=== PATIENT | male | born 1970 | race Caucasian/White ===

== ENCOUNTER 2016-07-07 12:22 | Emergency (ER) ==
[2016-07-07 12:28] VITALS: BP 149/96; TEMP 98.1; BMI 23.5
[2016-07-07] MEDS ORDERED: MORPHINE 4 MG/ML SYRINGE IM STA (12:42)
[2016-07-07] MEDS ORDERED: ZOFRAN 4 MG/2 ML IM STA (12:42)
[2016-07-07 12:44] LABS: BILIRUBIN,URINE Negative (NEGATIVE); KETONES,URINE Negative (NEGATIVE); LEUKOCYTE ESTERASE ,URINE Negative (NEGATIVE); NITRITE,URINE Negative (NEGATIVE); PROTEIN,URINE 1+ (NEGATIVE); URINE, BLOOD Trace-lysed (NEGATIVE)
[2016-07-07] MEDS ORDERED: TORADOL IM STA (12:44)
[2016-07-07 12:50] LABS: ADD URINE MICROSCOPIC YES
[2016-07-07 12:54] LABS: BASOPHILS # (AUTO) 0.1 K/uL (0-0.2); EOSINOPHILS # (AUTO) 0.6 K/ul (0.0-0.7); EOSINOPHILS % (AUTO) 5.9 % (0.0-7.0); HEMATOCRIT 39.3 % (42.0-52.0); HEMOGLOBIN 13.5 g/dl (14.0-18.0); IMMATURE GRANULOCYTE % (AUTO) 0.2 % (0.0-5.0); LYMPHOCYTES # (AUTO) 2.1 K/uL (0.60-3.4); LYMPHOCYTES % (AUTO) 22.3 (10.0-50.0); MEAN CORPUSCULAR HEMOGLOBIN 31.3 pg (27.0-31.0); MEAN CORPUSCULAR HGB CONC 34.4 (31.8-35.4); MONOCYTES # (AUTO) 0.9 K/uL (0.4-2.0); MONOCYTES % (AUTO) 9.1 (0-10); NEUTROPHILS # (AUTO) 5.8 K/ul (2.0-6.9); NEUTROPHILS % (AUTO) 61.5; PLATELET COUNT 239 10^3/uL (140-440); RED BLOOD COUNT 4.32 10^6/ul (4.70-6.10); WHITE BLOOD COUNT 9.42 K/ul (4.2-10.2)
[2016-07-07 13:15] LABS: ALBUMIN 3.4 g/dL (3.4-5.0); ALBUMIN/GLOBULIN RATIO 1.1; ANION GAP 10.5; BILIRUBIN,TOTAL 0.28 mg/dL (0.00-1.20); BUN/CREATININE RATIO 10.66; CALCIUM 8.7 mg/dL (8.2-10.2); CREATININE 0.75 mg/dL (0.60-1.10); POTASSIUM 3.5 mmol/L (3.5-5.1); TOTAL PROTEIN 6.5 g/dL (6.4-8.2)
--- NOTE | 2016-07-07 13:39 | CT ---
EXAM: CT Abdomen without contrast. CT Pelvis without contrast. HISTORY: Bilateral flank pain. COMPARISON: 03/11/2016. TECHNIQUE: Multiple axial images of the abdomen and pelvis were obtained without intravenous contra st. Images were reformatted in the coronal plane. FINDINGS: Please note that evaluation of the abdominal and pelvic structures is limited due to lack of intravenous contrast. Lung bases are clear. Degenerative changes are present in the spine. The liver, gallbladder, pancreas, spleen, adrenal glands are unremarkable. There is a nonobstructin g 0.6 meters left renal calculus. No hydronephrosis or perinephric inflammation identified. No ure teral or bladder calculi are seen. Duodenal diverticulum present. Diverticula present in the colon. There has been previous appendect ranjana. There is no evidence for bowel obstruction or acute inflammation. Atherosclerotic calcificati ons are present. No free fluid or free air identified. Urinary bladder is unremarkable. IMPRESSION: Left nephrolithiasis without obstructive uropathy.
--- NOTE | 2016-07-07 13:55 | ED.PDOC ---
General ED Provider: Dr. JAYLA SPARKS Chief Complaint: Back Pain Stated Complaint: BACK PAIN Time Seen by Physician: 12:33 (NOVEMBER PRESENT) Information Source: Patient Exam Limitations: No limitations Nursing and Triage Documentation Reviewed and Agree: Yes Musculoskeletal Complaint Exam - Back Pain Complaint/Exam Mechanism of Injury: Reports: No known trauma Onset/Duration: 1 DAY Symptoms Are: Still present Timing: Intermittent Episodes Lasting: Hours Initial Severity: Moderate Current Severity: Moderate Character: Reports: Throbbing Aggravating: Reports: None Alleviating: Reports: None Associated Signs and Symptoms: Reports: Flank pain (LEFT). Denies: Swelling, Redness, Bruising, Fever, Weakness, Numbness, Tingling, Abdominal pain, Bladder incontinence, Bowel incontinence, Weight loss, Pain with weight bearing TAD Risk Factors: Reports: None AAA Risk Factors: Reports: None Cauda Equina Risk Factors: Reports: None Epidural Abcess Risk Factors: Reports: None Related Surgical History: Reports: None Focal Tenderness: No Paraspinal Muscle Tenderness: No Paraspinal Muscle Spasm: No Scoliosis: No Lordosis: No Kyphosis: No SLR Test: Right Negative, Left Negative Hip Motion Testing Pain: Right Negative, Left Negative Focal Weakness: Present: None Focal Sensory Loss: Present: None Gait: Present: Normal Differential Diagnoses: Renal Colic, Strain, Sprain Review of Systems - Review Of Systems Constitutional: Reports: No symptoms Eyes: Reports: No symptoms Ears, Nose, Mouth, Throat: Reports: No symptoms Respiratory: Reports: No symptoms Cardiac: Reports: No symptoms GI: Reports: No symptoms : Reports: No symptoms Musculoskeletal: Reports: Back pain Skin: Reports: No symptoms Neurological: Reports: No symptoms Endocrine: Reports: No symptoms Hematologic/Lymphatic: Reports: No symptoms All Other Systems: Reviewed and Negative Past Medical History - Past Medical History Previously Healthy: Yes Endocrine: Reports: Other (gout) Cardiovascular: Reports: Hypertension Respiratory: Reports: None Hematological: Reports: None Gastrointestinal: Reports: None Genitourinary: Reports: Kidney stones Neuro/Psych: Reports: None Musculoskeletal: Reports: Back Pain Cancer: Reports: None Other Pertinent Past Medical History: gout; chronic back pain - Surgical History General Surgical History: Reports: Appendectomy (exploratory lap), Orthopedic ( 3 knee surg) - Family History Family History: Reports: Unknown - Social History Smoking Status: Current every day smoker, Heavy tobacco smoker Hx Substance Use: Yes Alcohol Screening: Occasionally Physical Exam - Physical Exam Appearance: Well-appearing, No pain distress, Well-nourished Eyes: KATHARINE, EOMI, Conjunctiva clear ENT: Ears normal, Nose normal, Oropharynx normal Respiratory: Airway patent, Breath sounds clear, Breath sounds equal, Respirations nonlabored Cardiovascular: RRR, Pulses normal, No rub, No murmur GI/: Soft, Nontender, No masses, Bowel sounds normal, No Organomegaly Musculoskeletal: Normal strength, ROM intact, No edema, No calf tenderness Skin: Warm, Dry, Normal color Neurological: Sensation intact, Motor intact, Reflexes intact, Cranial nerves intact, Alert, Oriented Psychiatric: Affect appropriate, Mood appropriate Interpretation - Radiology Interpretation Radiology Interpretation By: Radiologist Radiology Results: Positive (RENAL STONE) Critical Care Note - Critical Care Note Total Time (mins): 0 Course - Course Hematology/Chemistry: 07/07/16 12:41 07/07/16 12:41 Orders, Labs, Meds: Lab Review 07/07/16 07/07/16 12:35 12:41 WBC 9.42 RBC 4.32 L Hgb 13.5 L Hct 39.3 L MCV 91.0 MCH 31.3 H MCHC 34.4 RDW Coeff of Chandni 12.5 Plt Count 239 Immature Gran % (Auto) 0.2 Neut % (Auto) 61.5 Lymph % (Auto) 22.3 Brewster % (Auto) 9.1 Eos % (Auto) 5.9 Baso % (Auto) 1.0 Immature Gran # (Auto) 0.0 Neut # 5.8 Lymph # 2.1 Brewster # 0.9 Eos # 0.6 Baso # 0.1 Sodium 141 Potassium 3.5 Chloride 107 Carbon Dioxide 27 Anion Gap 10.5 BUN 8 Creatinine 0.75 Estimated GFR (MDRD) 112.00 BUN/Creatinine Ratio 10.66 Glucose 113 H Calcium 8.7 Total Bilirubin 0.28 AST 24 ALT 36 Alkaline Phosphatase 106 Total Protein 6.5 Albumin 3.4 Globulin 3.1 Albumin/Globulin Ratio 1.10 Amylase 38 Lipase 26 Urine Color Yellow Urine Clarity Clear Urine pH 7.0 Ur Specific Rewey 1.020 Urine Protein 1+ Urine Glucose (UA) Negative Urine Ketones Negative Urine Blood Trace-lysed Urine Nitrite Negative Urine Bilirubin Negative Urine Urobilinogen 1.0 Ur Leukocyte Esterase Negative Urine Microscopic RBC 0-2 Urine Microscopic WBC 0-2 Ur Squamous Epith Cells 0-2 Orders Category Date Time Status AMYLASE Stat LAB 07/07/16 12:41 Received CBC W/ AUTO DIFF Stat LAB 07/07/16 12:41 Completed COMPREHENSIVE METABOLIC PANEL Stat LAB 07/07/16 12:41 Received LIPASE Stat LAB 07/07/16 12:41 Received URINALYSIS C & S IF INDICATED Stat LAB 07/07/16 12:35 Completed Ketorolac Tromethamine [Toradol] MEDS 07/07/16 12:44 Discontinued 30 mg IM ONCE STA Morphine Sulfate [Morphine 4 mg/ml Syringe] MEDS 07/07/16 12:42 Discontinued 4 mg IM ONCE STA Ondansetron HCl/Pf [Zofran 4 mg/2 ml] MEDS 07/07/16 12:42 Discontinued 4 mg IM ONCE STA CT ABD/PEL WO RENAL STONE PROT Stat RADS 07/07/16 13:03 Ordered Medications Discontinued Medications Generic Name Dose Route Start Last Admin Trade Name Freq PRN Reason Stop Dose Admin Ketorolac Tromethamine 30 mg 07/07/16 12:44 07/07/16 12:57 Toradol IM 07/07/16 12:45 30 mg ONCE STA Administration Morphine Sulfate 4 mg 07/07/16 12:42 07/07/16 12:54 Morphine 4 Mg/Ml Syringe IM 07/07/16 12:43 4 mg ONCE STA Administration Ondansetron HCl 4 mg 07/07/16 12:42 07/07/16 12:57 Zofran 4 Mg/2 Ml IM 07/07/16 12:43 4 mg ONCE STA Administration Vital Signs: Temp Pulse Resp BP Pulse Ox 07/07/16 12:24 98.1 F 99 H 24 149/96 H 98 Departure - Departure Time of Disposition: 13:55 Disposition: HOME SELF-CARE Discharge Problem: Backache, Renal calculi Instructions: Renal Colic (ED), Flank Pain (ED), Kidney Stones (ED) Condition: Good Pt referred to PMD for follow-up: No Additional Instructions: Please call your Family Physician as soon as possible to schedule a follow-up appointment. Prescriptions: Hydrocodone/Acetaminophen [Olymp[place] 5-325 Tablet] 1 each PO Q6HR PRN #4 tablet PRN Reason: PAIN Allergies/Adverse Reactions: Allergies codeine Adverse Reaction (Verified 07/07/16 12:24) Rash Home Medications: Ambulatory Orders Lisinopril 10 mg PO DAILY 10/30/15 Hydrocodone/Acetaminophen [[place] 5-325 Tablet] 1 each PO Q6HR PRN #4 tablet 09/18
== END 2016-07-07 14:16 | disposition home or self-care (01) ==
LOC: ED 12:22
DX: N20.0 Calculus of kidney (principal); I10 Essential (primary) hypertension; Z87.442 Personal history of urinary calculi; F17.210 Nicotine dependence, cigarettes, uncomplicated
CPT/HCPCS: 36415; 74176; 80053; 81001; 82150; 83690; 85025; 96372; 99283

== ENCOUNTER 2016-08-24 13:19 | Emergency (ER) ==
[2016-08-24 13:19] VITALS: BMI 23.5
[2016-08-24 13:22] VITALS: BP 145/90; TEMP 96.5
[2016-08-24] MEDS ORDERED: DECADRON 4 MG/ML SDV IM STA (13:50)
[2016-08-24] MEDS ORDERED: TORADOL IM STA (13:50)
--- NOTE | 2016-08-24 14:06 | ED.PDOC ---
General ED Provider: Dr. JAYLA SPARKS Chief Complaint: Foot Pain/Injury Stated Complaint: gout attack left foot Time Seen by Physician: 13:22 Mode of Arrival: Walk-In Information Source: Patient Exam Limitations: No limitations Nursing and Triage Documentation Reviewed and Agree: Yes (same pain same location no injury) Musculoskeletal Complaint Exam - Ankle/Foot Complaint/Exam Location of Injury: Reports: Left, Foot Mechanism of Injury: Reports: No known trauma Symptoms Are: Reports: Still present Onset of Pain: Reports: Immediate Initial Severity: Moderate Current Severity: Moderate Location: Reports: Discrete Character: Reports: Aching Alleviating: Reports: Rest, Position Aggravating: Reports: Movement Able to Bear Weight: Yes Associated Signs and Symptoms: Denies: Swelling, Redness, Bruising, Fever, Weakness, Numbness, Tingling Related History: Reports: Similar episode Gout Risk Factors: Reports: >40 years old, HTN Related Surgical History: Reports: None Lower Extremity Findings: Present: Limited range of motion. Absent: Swelling, Ecchymosis, Abnormal contour, Rotation, Ligamentous instability, Laceration, Erythema, Warmth, Blisters, Other joint pain, Foreign body, Tenderness Achilles Tendon Abnormality: No Tenderness: Present: Midfoot, Metatarsals, Digits. Absent: Medial malleolus, Lateral malleolus, Heel Differential Diagnosis: Gout Review of Systems - Review Of Systems Constitutional: Reports: No symptoms Eyes: Reports: No symptoms Ears, Nose, Mouth, Throat: Reports: No symptoms Respiratory: Reports: No symptoms Cardiac: Reports: No symptoms GI: Reports: No symptoms : Reports: No symptoms Musculoskeletal: Reports: Joint pain (foot) Skin: Reports: No symptoms Neurological: Reports: No symptoms Endocrine: Reports: No symptoms Hematologic/Lymphatic: Reports: No symptoms All Other Systems: Reviewed and Negative Past Medical History - Past Medical History Previously Healthy: Yes Endocrine: Reports: Other (gout) Cardiovascular: Reports: Hypertension Respiratory: Reports: None Hematological: Reports: None Gastrointestinal: Reports: None Genitourinary: Reports: Kidney stones Neuro/Psych: Reports: None Musculoskeletal: Reports: Back Pain Cancer: Reports: None Other Pertinent Past Medical History: gout; chronic back pain - Surgical History General Surgical History: Reports: Appendectomy (exploratory lap), Orthopedic ( 3 knee surg) - Family History Family History: Reports: Unknown - Social History Smoking Status: Current every day smoker, Heavy tobacco smoker Hx Substance Use: Yes Alcohol Screening: Occasionally Physical Exam - Physical Exam Appearance: Well-appearing, No pain distress, Well-nourished Eyes: KATHARINE, EOMI, Conjunctiva clear ENT: Ears normal, Nose normal, Oropharynx normal Respiratory: Airway patent, Breath sounds clear, Breath sounds equal, Respirations nonlabored Cardiovascular: RRR, Pulses normal, No rub, No murmur GI/: Soft, Nontender, No masses, Bowel sounds normal, No Organomegaly Musculoskeletal: Limited ROM Skin: Warm, Dry, Normal color Neurological: Sensation intact, Motor intact, Reflexes intact, Cranial nerves intact, Alert, Oriented Psychiatric: Affect appropriate, Mood appropriate Critical Care Note - Critical Care Note Total Time (mins): 0 Course - Course Orders, Labs, Meds: Orders Category Date Time Status Dexamethasone 4 mg/ml Inj [Decadron 4 mg/ml Sdv] MEDS 08/24/16 13:50 Discontinued 4 mg IM ONCE STA Ketorolac Tromethamine [Toradol] MEDS 08/24/16 13:50 Discontinued 60 mg IM ONCE STA Medications Discontinued Medications Generic Name Dose Route Start Last Admin Trade Name Freq PRN Reason Stop Dose Admin Dexamethasone Sodium Phosphate 4 mg 08/24/16 13:50 08/24/16 13:59 Decadron 4 Mg/Ml Sdv IM 08/24/16 13:51 4 mg ONCE STA Administration Ketorolac Tromethamine 60 mg 08/24/16 13:50 08/24/16 13:59 Toradol IM 08/24/16 13:51 60 mg ONCE STA Administration Vital Signs: Temp Pulse Resp BP Pulse Ox 08/24/16 13:19 96.5 F L 95 H 20 145/90 H 97 Departure - Departure Time of Disposition: 14:40 Disposition: HOME SELF-CARE Discharge Problem: Acute gout Qualifiers: Gout site: foot Gout etiology: unspecified cause Laterality: left Qualifier Code: (M10.9) Gout, unspecified Instructions: Gout (ED), Low Purine Diet (ED), Self-Care Measures with a Chronic Disease (ED) Condition: Good Pt referred to PMD for follow-up: No Additional Instructions: Please call your Family Physician as soon as possible to schedule a follow-up appointment. Allergies/Adverse Reactions: Allergies codeine Adverse Reaction (Verified 08/24/16 13:22) Rash Home Medications: Ambulatory Orders Nabumetone [Relafen] 1,000 mg PO BIDWM #4 tablet 08/24/16
== END 2016-08-24 14:27 | disposition home or self-care (01) ==
LOC: ED 13:19
DX: M10.9 Gout, unspecified (principal); I10 Essential (primary) hypertension; F17.210 Nicotine dependence, cigarettes, uncomplicated
CPT/HCPCS: 96372; 99282

== ENCOUNTER 2016-11-08 15:19 | Emergency (ER) ==
[2016-11-08 15:27] VITALS: BP 146/90; TEMP 98.9; BMI 24.1
[2016-11-08] MEDS ORDERED: TORADOL IM STA (15:35)
[2016-11-08] MEDS ORDERED: NORFLEX IM STA (15:35)
[2016-11-08] MEDS ORDERED: DECADRON 4 MG/ML SDV IM STA (15:36)
--- NOTE | 2016-11-08 15:39 | ED.PDOC ---
General ED Provider: Dr. JAYLA SPARKS Chief Complaint: Back Pain Stated Complaint: back pain Time Seen by Physician: 15:19 (no trauma/ MAY PRESENT AT ALL TIMES ) Information Source: Patient Exam Limitations: No limitations [facility] Nursing and Triage Documentation Reviewed and Agree: Yes Musculoskeletal Complaint Exam - Back Pain Complaint/Exam Mechanism of Injury: Reports: No known trauma Onset/Duration: chronic Symptoms Are: Still present Timing: Constant Episodes Lasting: Hours Initial Severity: Moderate Current Severity: Moderate Location: Reports: Discrete Character: Reports: Aching Aggravating: Reports: None Alleviating: Reports: None Associated Signs and Symptoms: Denies: Swelling, Redness, Bruising, Fever, Weakness, Numbness, Tingling, Abdominal pain, Flank pain, Bladder incontinence, Bowel incontinence, Weight loss, Pain with weight bearing Related History: Reports: Similar episode TAD Risk Factors: Reports: None AAA Risk Factors: Reports: None Cauda Equina Risk Factors: Reports: None Epidural Abcess Risk Factors: Reports: None Related Surgical History: Reports: None Focal Tenderness: No Paraspinal Muscle Tenderness: No Paraspinal Muscle Spasm: No Scoliosis: No Lordosis: No Kyphosis: No SLR Test: Right Negative, Left Negative Hip Motion Testing Pain: Right Negative, Left Negative Focal Weakness: Present: None Focal Sensory Loss: Present: None Gait: Present: Normal Differential Diagnoses: Strain, Sprain Review of Systems - Review Of Systems Constitutional: Reports: No symptoms Eyes: Reports: No symptoms Ears, Nose, Mouth, Throat: Reports: No symptoms Respiratory: Reports: No symptoms Cardiac: Reports: No symptoms GI: Reports: No symptoms : Reports: No symptoms Musculoskeletal: Reports: Back pain Skin: Reports: No symptoms Neurological: Reports: No symptoms Endocrine: Reports: No symptoms Hematologic/Lymphatic: Reports: No symptoms All Other Systems: Reviewed and Negative Past Medical History - Past Medical History Previously Healthy: Yes Endocrine: Reports: Other (gout) Cardiovascular: Reports: Hypertension Respiratory: Reports: None Hematological: Reports: None Gastrointestinal: Reports: None Genitourinary: Reports: Kidney stones Neuro/Psych: Reports: None Musculoskeletal: Reports: Back Pain Cancer: Reports: None Other Pertinent Past Medical History: gout; chronic back pain - Surgical History General Surgical History: Reports: Appendectomy (exploratory lap), Orthopedic ( 3 knee surg) - Family History Family History: Reports: Unknown - Social History Smoking Status: Current every day smoker, Heavy tobacco smoker Hx Substance Use: Yes (pot) Alcohol Screening: None Physical Exam - Physical Exam Appearance: Well-appearing, No pain distress, Well-nourished Eyes: KATHARINE, EOMI, Conjunctiva clear ENT: Ears normal, Nose normal, Oropharynx normal Respiratory: Airway patent, Breath sounds clear, Breath sounds equal, Respirations nonlabored Cardiovascular: RRR, Pulses normal, No rub, No murmur GI/: Soft, Nontender, No masses, Bowel sounds normal, No Organomegaly Musculoskeletal: Normal strength, ROM intact, No edema, No calf tenderness Skin: Warm, Dry, Normal color Neurological: Sensation intact, Motor intact, Reflexes intact, Cranial nerves intact, Alert, Oriented Psychiatric: Affect appropriate, Mood appropriate Critical Care Note - Critical Care Note Total Time (mins): 0 Course - Course Orders, Labs, Meds: Orders Category Date Time Status Dexamethasone 4 mg/ml Inj [Decadron 4 mg/ml Sdv] MEDS 11/08/16 15:36 Stat 2 mg IM ONCE STA Ketorolac Tromethamine [Toradol] MEDS 11/08/16 15:35 Stat 60 mg IM ONCE STA Orphenadrine Citrate [Norflex] MEDS 11/08/16 15:35 Stat 30 mg IM ONCE STA Medications Generic Name Dose Route Start Last Admin Trade Name Freq PRN Reason Stop Dose Admin Dexamethasone Sodium Phosphate 2 mg 11/08/16 15:36 Decadron 4 Mg/Ml Sdv IM 11/08/16 15:37 ONCE STA Discontinued Medications Generic Name Dose Route Start Last Admin Trade Name Freq PRN Reason Stop Dose Admin Ketorolac Tromethamine 60 mg 11/08/16 15:35 Toradol IM 11/08/16 15:36 ONCE STA Orphenadrine Citrate 30 mg 11/08/16 15:35 Norflex IM 11/08/16 15:36 ONCE STA Vital Signs: Temp Pulse Resp BP Pulse Ox 11/08/16 15:19 98.9 F 92 H 20 146/90 H 98 Departure - Departure Time of Disposition: 15:38 (pt charged out . LEFT AMA MAY PRESENT AT ALL TIMES ) Disposition: AMA Discharge Problem: Backache Back pain Qualifiers: Chronicity: unspecified Instructions: Back Pain (ED) Condition: Good Pt referred to PMD for follow-up: No Additional Instructions: Please call your Family Physician as soon as possible to schedule a follow-up appointment. Allergies/Adverse Reactions: Allergies codeine Adverse Reaction (Verified 11/08/16 15:26) Rash Home Medications: Ambulatory Orders 1 [No Reported Medications] 11/08/16
== END 2016-11-08 15:35 | disposition left against medical advice (07) ==
LOC: ED 15:19
DX: M54.9 Dorsalgia, unspecified (principal); F17.210 Nicotine dependence, cigarettes, uncomplicated
CPT/HCPCS: 99284

== ENCOUNTER 2017-01-21 14:38 | Outpatient (CLI) ==
[2017-01-21 14:54] VITALS: BMI 25.0
== END 2017-01-21 14:39 | disposition home or self-care (01) ==
LOC: AMBL 14:38
PROVIDERS: ATTEND Emergency Medicine
DX: M25.561 Pain in right knee (principal)

== ENCOUNTER 2017-01-21 14:46 | Emergency (ER) ==
[2017-01-21] MEDS ORDERED: ZOFRAN 4 MG/2 ML IM STA (14:52)
[2017-01-21] MEDS ORDERED: DILAUDID 1 MG/ML SYRINGE IM STA (14:52)
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
[2017-01-21 14:54] VITALS: BP 146/90; BMI 25.0
[2017-01-21 15:01] VITALS: TEMP 99.7
--- NOTE | 2017-01-21 15:52 | DI ---
EXAM: Right knee four views HISTORY: Acute right knee pain, history of patellar fracture COMPARISON: 12/27/2015 FINDINGS: There is redemonstration of a patellar fracture. Fracture line remains visible with nonu nion of the fracture. Small to moderate tricompartmental osteophytes. Mild narrowing patellofemoral compartment. Chondrocalcinosis medial and lateral compartment. Possible small joint effusion. IMPERSSION: 1. Redemonstration of a patellar fracture. Fracture line remains visible with nonunion of the frac ture. 2. Tricompartmental osteoarthritis. Chondrocalcinosis. 3. Possible small joint effusion.
== END 2017-01-21 16:44 | disposition home or self-care (01) ==
LOC: ED 14:46
DX: M25.561 Pain in right knee (principal); S82.001K Unspecified fracture of right patella, subsequent encounter for closed fracture with nonunion; M17.11 Unilateral primary osteoarthritis, right knee; W22.8XXD Striking against or struck by other objects, subsequent encounter; F17.210 Nicotine dependence, cigarettes, uncomplicated
CPT/HCPCS: 96372; 99283

== ENCOUNTER 2017-11-11 16:55 | Emergency (ER) ==
[2017-11-11 17:05] VITALS: BP 160/105; TEMP 98.9; BMI 26.2
[2017-11-11] MEDS ORDERED: TORADOL IM STA (18:11)
--- NOTE | 2017-11-11 18:11 | ED.PDOC ---
General ED Provider: Dr. JEY BURROUGHS Chief Complaint: Neck Pain Non-Injury Stated Complaint: Neck and Lt shoulder pain. 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 Onset 3 days ago with some improvement after resting at night but today after work pain exacerbated to the worst level pain 8/10. 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 Denies radiculating symptoms into lt UE. States pain at Lt occipital basilar region and in upper thoracic region on Lt into mid trapezius region and lt ant chest wall Time Seen by Physician: 18:00 Mode of Arrival: Walk-In Information Source: Patient Exam Limitations: No limitations Nursing and Triage Documentation Reviewed and Agree: Yes Reviewed sepsis parameters & appropriate labs ordered?: Yes System Inflammatory Response Syndrome: Not Applicable Sepsis Protocol: For patient's 13 years and over: Temp is 96.8 and below OR 101 and greater Pulse >90 BPM Resp >20/minute Acutely Altered Mental Status Are patient's symptoms suggestive of a new infection, such as: -Pneumonia -Skin, Soft Tissue -Endocarditis -UTI -Bone, Joint Infection -Implantable Device -Acute Abdominal Infection -Wound Infection -Meningitis -Blood Stream Catheter Infection -Unknown System Inflammatory Response Syndrome: Not Applicable Musculoskeletal Complaint Exam - Shoulder Pain Complaint/Exam Mechanism of Injury: Reports: No known trauma Symptoms Are: Still present Timing: Constant Initial Severity: Moderate Current Severity: Moderate Location: Reports: Discrete Character: Reports: Aching, Spasmodic, Stiffness Alleviating: Reports: Rest Aggravating: Reports: Movement, Lifting, Flexion, Extension Associated Signs and Symptoms: Reports: Swelling. Denies: Weakness Related History: Denies: Similar episode Non-Orthopedic Risk Factors: Reports: None DVT Risk Factors: Reports: None Septic Arthritis Risk Factors: Reports: None Related Surgical History: Reports: None Shoulder Findings: Present: Other joint pain (Tenderness at AC joint out to GH joint. ROM restricted until counterstrain completed then ROM Restored.). Absent : Swelling, Ecchymosis, Abnormal contour, Rotation, Ligamentous instability, Laceration, Erythema, Warmth Limited Range of Motion: Present: Abduction, External rotation Differential Diagnoses: Strain - Neck Pain Complaint/Exam Mechanism of Injury: Reports: No known trauma Symptoms Are: Still present Timing: Constant Episodes Lasting: Minutes Initial Severity: Severe Current Severity: Moderate Location: Reports: Discrete (Lt side ) Character: Reports: Aching, Spasmodic, Stiffness Aggravating: Reports: Movement Alleviating: Reports: Heat, Ice, Massage Associated Signs and Symptoms: Denies: Nuchal rigidity, Weakness, Headache, Paresthesia Related History: Reports: Similar episode Meningitis Risk Factors: Reports: None Cervical Spine Injury Risk Factors: Reports: None Related Surgical History: Reports: None Tenderness: Present: Paraspinal (lt) Radiates to: Absent: Right arm, Left arm Focal Weakness: Present: None Focal Sensory Loss: Reports: None Differential Diagnoses: Sprain, Strain, Other (Paraspinous muscular strain and spasm /Occipital cervical/ Lt and 1st Costovertebral somatic dysfunctions) Review of Systems - Review Of Systems Constitutional: Reports: No symptoms Eyes: Reports: No symptoms Ears, Nose, Mouth, Throat: Reports: No symptoms Respiratory: Reports: No symptoms Cardiac: Reports: No symptoms GI: Reports: No symptoms : Reports: No symptoms Musculoskeletal: Reports: Muscle pain, Muscle stiffness, Neck pain Skin: Reports: No symptoms Neurological: Reports: Anxiety Endocrine: Reports: No symptoms Hematologic/Lymphatic: Reports: No symptoms All Other Systems: Reviewed and Negative Past Medical History - Past Medical History Previously Healthy: Yes Endocrine: Reports: Other (gout) Cardiovascular: Reports: Hypertension Respiratory: Reports: None Hematological: Reports: None Gastrointestinal: Reports: None Genitourinary: Reports: Kidney stones Neuro/Psych: Reports: None Musculoskeletal: Reports: Back Pain Cancer: Reports: None Other Pertinent Past Medical History: gout; chronic back pain - Surgical History General Surgical History: Reports: Appendectomy (exploratory lap), Orthopedic ( 3 knee surg) - Family History Family History: Reports: Unknown - Social History Smoking Status: Current every day smoker, Heavy tobacco smoker Hx Substance Use: Yes (pot) Alcohol Screening: None Physical Exam - Physical Exam Appearance: Well-appearing, No pain distress, Well-nourished Eyes: KATHARINE, EOMI, Conjunctiva clear ENT: Ears normal, Nose normal, Oropharynx normal Respiratory: Airway patent, Breath sounds clear, Breath sounds equal, Respirations nonlabored Cardiovascular: RRR, Pulses normal, No rub, No murmur GI/: Soft, Nontender, No masses, Bowel sounds normal, No Organomegaly Musculoskeletal: Normal strength, ROM intact (Restricted ROM to Rt Cervical rotation ), No edema, No calf tenderness Skin: Warm, Dry, Normal color Neurological: Sensation intact, Motor intact, Reflexes intact, Cranial nerves intact, Alert, Oriented Psychiatric: Affect appropriate, Mood appropriate Critical Care Note - Critical Care Note Total Time (mins): 0 Course - Course Orders, Labs, Meds: Orders Category Date Time Status Ketorolac Tromethamine [Toradol] MEDS 11/11/17 18:39 Discontinued 10 mg PO ONCE STA Ketorolac Tromethamine [Toradol] MEDS 11/11/17 18:11 Discontinued 30 mg IM ONCE STA Orphenadrine Citrate [Norflex] MEDS 11/11/17 18:40 Discontinued 100 mg PO ONCE STA CT CERVICAL SPINE W/O CONTRAST Stat RADS 11/11/17 18:12 Completed Medications Discontinued Medications Generic Name Dose Route Start Last Admin Trade Name Freq PRN Reason Stop Dose Admin Ketorolac Tromethamine 30 mg 11/11/17 18:11 11/11/17 18:45 Toradol IM 11/11/17 18:12 Not Given ONCE STA Ketorolac Tromethamine 10 mg 11/11/17 18:39 11/11/17 18:45 Toradol PO 11/11/17 18:40 10 mg ONCE STA Administration Orphenadrine Citrate 100 mg 11/11/17 18:40 11/11/17 18:44 Norflex PO 11/11/17 18:41 100 mg ONCE STA Administration Vital Signs: Temp Pulse Resp BP Pulse Ox 11/11/17 16:56 98.9 F 108 H 20 160/105 H 98 Departure - Departure Time of Disposition: 19:00 Disposition: HOME SELF-CARE Discharge Problem: Cervical strain, acute, Cervicalgia of [id number]-[id number] region, Hypertension Instructions: Cervical Strain (ED), Chronic Hypertension (ED), Chronic Hypertension (DC) Condition: Fair Pt referred to PMD for follow-up: Yes (1 week) IPMP verified?: No Additional Instructions: Avoid strenuous activity and heavy lifting Take meds as directed Apply ice pack alternating with warm moist heat to neck and shoulder several times daily Prescriptions: Ketorolac Tromethamine [Toradol] 10 mg PO Q6H #20 tablet Orphenadrine Citrate [Norflex] 100 mg PO Q12H PRN #20 tablet.er PRN Reason: muscle spasm Allergies/Adverse Reactions: Allergies codeine Adverse Reaction (Verified 11/11/17 17:02) Rash Home Medications: Ambulatory Orders Ketorolac Tromethamine [Toradol] 10 mg PO Q6H #20 tablet 11/11/17 Orphenadrine Citrate [Norflex] 100 mg PO Q12H PRN #20 tablet.er 11/11/17
[2017-11-11] MEDS ORDERED: TORADOL PO STA (18:39)
[2017-11-11] MEDS ORDERED: NORFLEX PO STA (18:40)
--- NOTE | 2017-11-11 18:57 | CT ---
Exam: CT cervical spine without intravenous contrast. Comparison: 03/11/2016. Reason for exam: Neck pain. FINDINGS: No acute fracture or listhesis in the cervical spine. The vertebral body heights are well maintained. There is a normal appearing cervical lordotic curve. Mild degenerative disease is seen with osteophyte formation and facet hypertrophy. The dens is intact. The prevertebral soft tissues are within normal limits. Imaging findings appear similar to the CT performed on 03/11/2016. 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 Emphysematous disease is seen within the partially image d lung apices. Central canal narrowing secondary to degenerative disease most notably at C4-C5, C5-C 6, and C6-C7. Impression: No acute fracture or listhesis in the cervical spine with multilevel degenerative disease
== END 2017-11-11 19:34 | disposition home or self-care (01) ==
LOC: ED 16:55
DX: S16.1XXA Strain of muscle, fascia and tendon at neck level, initial encounter (principal); M54.2 Cervicalgia; M25.512 Pain in left shoulder; I10 Essential (primary) hypertension; X50.0XXA Overexertion from strenuous movement or load, initial encounter; F17.210 Nicotine dependence, cigarettes, uncomplicated
CPT/HCPCS: 99282

== ENCOUNTER 2017-11-15 17:39 | Emergency (ER) ==
[2017-11-15 17:45] VITALS: BP 123/89; TEMP 98; BMI 25.3
== END 2017-11-15 19:28 | disposition left against medical advice (07) ==
LOC: ED 17:39
DX: R25.2 Cramp and spasm (principal); R42 Dizziness and giddiness; F17.210 Nicotine dependence, cigarettes, uncomplicated
CPT/HCPCS: 99281

== ENCOUNTER 2018-03-02 15:24 | Outpatient (CLI) | END 2018-03-02 15:25 | disposition home or self-care (01) | LOC: RHC-LAB 15:24 | PROVIDERS: ATTEND Emergency Medicine | DX: F32.9 Major depressive disorder, single episode, unspecified (principal); N52.8 Other male erectile dysfunction; E66.9 Obesity, unspecified; F17.200 Nicotine dependence, unspecified, uncomplicated; Z12.5 Encounter for screening for malignant neoplasm of prostate | CPT/HCPCS: 36415; 80053; 80061; 84403; 84443; 85025 ==

== ENCOUNTER 2018-03-04 09:14 | Emergency (ER) | payer OTHER ==
[2018-03-04 09:23] VITALS: BP 151/93; TEMP 96; BMI 26.6
[2018-03-04] MEDS ORDERED: DILAUDID 0.5 MG/0.5 ML SYRINGE IVP STA ×2 (09:23→11:24)
[2018-03-04] MEDS ORDERED: ZOSYN 3.375 GM 3.375 GM in SODIUM CHLORIDE 50 ML IV STA (09:24)
[2018-03-04] MEDS ORDERED: TENIVAC IM ONE (09:24)
--- NOTE | 2018-03-04 09:47 | ED.PDOC ---
General ED Provider: Dr. JAYLA SPARKS Chief Complaint: Foot Pain/Injury Stated Complaint: left foot injury(nail gun) Time Seen by Physician: 09:15 (sen with entire nursing staff) Mode of Arrival: Wheelchair Information Source: Patient Exam Limitations: No limitations Primary Care Provider: CARMELO CARRERA Referred to ED by: Other (last meal ) Nursing and Triage Documentation Reviewed and Agree: Yes Does patient meet sepsis criteria?: No System Inflammatory Response Syndrome: Not Applicable Sepsis Protocol: For patient's 13 years and over: Temp is 96.8 and below OR 101 and greater Pulse >90 BPM Resp >20/minute Acutely Altered Mental Status Are patient's symptoms suggestive of a new infection, such as: -Pneumonia -Skin, Soft Tissue -Endocarditis -UTI -Bone, Joint Infection -Implantable Device -Acute Abdominal Infection -Wound Infection -Meningitis -Blood Stream Catheter Infection -Unknown Musculoskeletal Complaint Exam - Ankle/Foot Complaint/Exam Location of Injury: Reports: Left, Foot Mechanism of Injury: Reports: Trauma (by a nail gun ) Onset/Duration: 30 min ago Onset of Pain: Reports: Immediate Initial Severity: Moderate Current Severity: Moderate Location: Reports: Discrete (dorsal left foot) Character: Reports: Aching, Throbbing Alleviating: Reports: Rest Aggravating: Reports: Movement Able to Bear Weight: No (not attempted ) Associated Signs and Symptoms: Denies: Swelling, Redness, Bruising, Fever, Weakness, Numbness, Tingling (did not remove the pt's shoe ) Gout Risk Factors: Reports: >40 years old Related Surgical History: Reports: None Achilles Tendon Abnormality: No Tenderness: Present: Metatarsals Differential Diagnosis: Puncture Wound (nail), Other Review of Systems - Review Of Systems Constitutional: Reports: No symptoms Eyes: Reports: No symptoms Ears, Nose, Mouth, Throat: Reports: No symptoms Respiratory: Reports: No symptoms Cardiac: Reports: No symptoms GI: Reports: No symptoms : Reports: No symptoms Musculoskeletal: Reports: Other (LEFT FOOT PAIN) Skin: Reports: No symptoms Neurological: Reports: No symptoms Endocrine: Reports: No symptoms Hematologic/Lymphatic: Reports: No symptoms All Other Systems: Reviewed and Negative Past Medical History - Past Medical History Previously Healthy: Yes Endocrine: Reports: Other (gout) Cardiovascular: Reports: Hypertension Respiratory: Reports: None Hematological: Reports: None Gastrointestinal: Reports: None Genitourinary: Reports: Kidney stones Neuro/Psych: Reports: None Musculoskeletal: Reports: Back Pain Cancer: Reports: None Other Pertinent Past Medical History: gout; chronic back pain - Surgical History General Surgical History: Reports: Appendectomy (exploratory lap), Orthopedic ( 3 knee surg) - Family History Family History: Reports: Unknown - Social History Smoking Status: Current every day smoker, Heavy tobacco smoker Hx Substance Use: Yes (pot) Alcohol Screening: None - Immunizations Tetanus Shot up to Date: Yes (2-3 years.) Physical Exam - Physical Exam Appearance: Well-appearing, No pain distress, Well-nourished Eyes: KATHARINE, EOMI, Conjunctiva clear ENT: Ears normal, Nose normal, Oropharynx normal Respiratory: Airway patent, Breath sounds clear, Breath sounds equal, Respirations nonlabored Cardiovascular: RRR, Pulses normal, No rub, No murmur GI/: Soft, Nontender, No masses, Bowel sounds normal, No Organomegaly Musculoskeletal: Limited ROM (a nail is noted on the dorsal aspect of the left fot no ) Skin: Warm, Dry, Normal color Neurological: Sensation intact, Motor intact, Reflexes intact, Cranial nerves intact, Alert, Oriented Psychiatric: Affect appropriate, Mood appropriate Interpretation - Mercerizing Range Feeder Rate: Normal Rhythm: Sinus Ectopy: None - EKG Interpretation Rate: Normal Rhythm: Sinus [place]: Left (LEFT ANTERIOR HEMIBLOCK, PROLONGED QT INTERVAL) Physician Notification - Case Discussed Physician Notified: Brina BARBA /DAMASO BARBA Time of Notification: 10:10 (TRANSFER TO ED AT [facility]) Time of Notification: 10:12 (DOCTOR BRINA WOULD LIKE GENTAMYOCIN BE GIVEN CONSULTED [facility] ON THIS ISSUE ) Critical Care Note - Critical Care Note Total Time (mins): 0 Course - Course Hematology/Chemistry: 03/04/18 09:25 Orders, Labs, Meds: Lab Review 03/04/18 09:25 WBC 9.13 RBC 4.72 Hgb 14.8 Hct 42.0 MCV 89.0 MCH 31.4 H MCHC 35.2 RDW Coeff of Chandni 12.3 Plt Count 282 Immature Gran % (Auto) 0.3 Neut % (Auto) 48.7 Lymph % (Auto) 35.0 [place] % (Auto) 9.3 Eos % (Auto) 5.8 Baso % (Auto) 0.9 Immature Gran # (Auto) 0.0 Neut # (Auto) 4.4 Lymph # (Auto) 3.2 [place] # (Auto) 0.9 Eos # (Auto) 0.5 Baso # (Auto) 0.1 Orders Category Date Time Status EKG-(ED ONLY) Stat CARDIO 03/04/18 09:50 Ordered CBC W/ AUTO DIFF Stat LAB 03/04/18 09:50 Ordered COMPREHENSIVE METABOLIC PANEL Stat LAB 03/04/18 09:50 Ordered PARTIAL THROMBOPLASTIN TIME Stat LAB 03/04/18 09:50 Ordered PT WITH INR Stat LAB 03/04/18 09:50 Ordered Hydromorphone HCl [Dilaudid 0.5 mg/0.5 ml Syringe] MEDS 03/04/18 09:23 Stat 0.5 mg IVP ONCE STA Piperacillin Sodium/Tazobactam [Zosyn 3.375 gm] 3.375 MEDS 03/04/18 09:24 Ordered gm 0.9 % Sodium Chloride [Sodium Chloride] 50 ml IV ONCE Tetanus and Diphtheria Tox/Pf [Tenivac] MEDS 03/04/18 09:24 Once 0.5 ml IM .ONCE ONE CT FOOT LEFT WITHOUT CONTRAST Stat RADS 03/04/18 10:00 Ordered FOOT, LEFT 3 VIEWS Stat RADS 03/04/18 09:23 Ordered Medications Generic Name Dose Route Start Last Admin Trade Name Freq PRN Reason Stop Dose Admin Piperacillin Sod/Tazobactam 50 mls @ 50 mls/hr 03/04/18 09:24 03/04/18 09:59 Sod 3.375 gm/ Sodium Chloride IV 03/04/18 10:23 50 mls/hr ONCE STA Administration Discontinued Medications Generic Name Dose Route Start Last Admin Trade Name Freq PRN Reason Stop Dose Admin Hydromorphone HCl 0.5 mg 03/04/18 09:23 03/04/18 09:28 Dilaudid 0.5 Mg/0.5 Ml Syringe IVP 03/04/18 09:24 0.5 mg ONCE STA Administration Tetanus/Diphtheria Toxoids Adsorbed 0.5 ml 03/04/18 09:24 Tenivac IM 03/04/18 09:25 .ONCE ONE Vital Signs: Temp Pulse Resp BP Pulse Ox 03/04/18 09:15 96 F L 98 H 20 151/93 H 98 Departure - Departure Time of Disposition: 11:00 (ATE /DRANK ABOUT 1 HOUR AGO) Disposition: TSF SHORT-TRM HOSP Discharge Problem: Foreign body in foot, left Qualifiers: Encounter type: initial encounter Qualified Code(s): S90.852A - Superficial foreign body, left foot, initial encounter Instructions: Puncture Wound (ED), Puncture Wound (DC) Condition: Good Pt referred to PMD for follow-up: Yes IPMP verified?: No Additional Instructions: Please call your Family Physician as soon as possible to schedule a follow-up appointment. Allergies/Adverse Reactions: Allergies codeine Adverse Reaction (Verified 03/04/18 09:22) Rash Disposition Discussed With: Patient
--- NOTE | 2018-03-04 09:52 | DI ---
EXAM: Three views of the left foot. History: Left foot trauma. Findings / impression: Evaluation is difficult due to overlying clothing material. 3.8 cm metallic n ail is seen projecting over the first metatarsal. It is difficult to determine whether this is penet rating the bone or within the adjacent soft tissues. Consider correlation with CT. There is a metallic nail seen posteriorly but not within the soft tissues in the sole of the shoe.
[2018-03-04] MEDS ORDERED: GENTAMICIN SULFATE 80 MG in SODIUM CHLORIDE 50 ML IV STA (10:13)
--- NOTE | 2018-03-04 10:55 | CT ---
Exam: CT left foot without contrast History: Nail injury Technique: [address] of the left foot with multiplanar reformations FINDINGS: A nail traverses the first metatarsal anteromedial medial to posterolateral direction. A few comminuted fracture fragments. No additional bones are involved. The anterior cortex remains in tact. Impression: 1. Penetrating injury through the first metatarsal metadiaphysis. Mild fracture comminution. No add itional fracture sites.
== END 2018-03-04 11:30 | disposition short-term general hospital (02) ==
LOC: ED 09:14
DX: S91.342A Puncture wound with foreign body, left foot, initial encounter (principal); W29.4XXA Contact with nail gun, initial encounter; F17.210 Nicotine dependence, cigarettes, uncomplicated
CPT/HCPCS: 36415; 80053; 85025; 85610; 85730; 93005; 93010; 96365; 96366; 96375; 96376; 99285

== ENCOUNTER 2018-03-04 11:32 | Outpatient (CLI) ==
[2018-03-04 09:23] VITALS: BMI 26.6
== END 2018-03-04 11:54 | disposition short-term general hospital (02) ==
LOC: AMBL 11:32
PROVIDERS: ATTEND Internal Medicine
DX: S91.342A Puncture wound with foreign body, left foot, initial encounter (principal); W45.0XXA Nail entering through skin, initial encounter; W29.8XXA Contact with other powered hand tools and household machinery, initial encounter; S92.302A Fracture of unspecified metatarsal bone(s), left foot, initial encounter for closed fracture

== ENCOUNTER 2018-03-16 08:04 | Outpatient (CLI) | END 2018-03-16 08:05 | disposition home or self-care (01) | LOC: WOUND 08:04 | PROVIDERS: ATTEND Nurse Practitioner Family | DX: S91.342A Puncture wound with foreign body, left foot, initial encounter (principal); I10 Essential (primary) hypertension; J44.9 Chronic obstructive pulmonary disease, unspecified | CPT/HCPCS: 99202 ==

== ENCOUNTER 2018-08-01 13:15 | Emergency (ER) ==
[2018-08-01 13:19] VITALS: BP 149/85; TEMP 98; BMI 25.0
[2018-08-01] MEDS ORDERED: NORFLEX IM STA (14:17)
[2018-08-01] MEDS ORDERED: TORADOL IM STA (14:17)
--- NOTE | 2018-08-01 14:59 | CT ---
EXAM: CT abdomen pelvis without contrast HISTORY: Pain, left flank pain COMPARISON: 03/11/2016 TECHNIQUE: CT abdomen pelvis performed without intravenous contrast. Coronal and sagittal reformatt ed images obtained. FINDINGS: Mild dependent density lung bases. No free air. No acute abnormalities of the bones. De generative change in the spine. Heart normal in size. Evaluation organ parenchyma limited without c ontrast. Liver appears normal. Gallbladder appears normal. Pancreas appears normal. Spleen appear s normal. Adrenals appear normal. Aorta normal in caliber. Mild atherosclerosis. Prostate normal in size. Small bilateral fat containing inguinal hernias. Small fat-containing periumbilical hernia . Minimal8 fat-containing periumbilical hernia. No lymphadenopathy or ascites. Stomach unremarkabl e. Duodenal diverticula. No dilated loops small bowel. Patient status post appendectomy. Mild col onic diverticulosis. Punctate right nephrolithiasis. 6 mm nonobstructing calculus left inferior kid catherine. No hydronephrosis. No calculi visualized in normal course of the ureters. Bladder grossly unr emarkable. IMPRESSION: 1. Bilateral nephrolithiasis. No hydronephrosis. 2. Colonic diverticulosis. Duodenal diverticulum.
--- NOTE | 2018-08-01 15:04 | ED.PDOC ---
General ED Provider: Dr. JAYLA SPARKS Chief Complaint: Back Pain Stated Complaint: back pain left sided left flank Time Seen by Physician: 13:17 Mode of Arrival: Walk-In Information Source: Patient Exam Limitations: No limitations Primary Care Provider: DORIS ROSALES Nursing and Triage Documentation Reviewed and Agree: Yes Does patient meet sepsis criteria?: No If yes, has appropriate treatment been initiated?: No System Inflammatory Response Syndrome: Not Applicable Sepsis Protocol: For patient's 13 years and over: Temp is 96.8 and below OR 101 and greater Pulse >90 BPM Resp >20/minute Acutely Altered Mental Status Are patient's symptoms suggestive of a new infection, such as: -Pneumonia -Skin, Soft Tissue -Endocarditis -UTI -Bone, Joint Infection -Implantable Device -Acute Abdominal Infection -Wound Infection -Meningitis -Blood Stream Catheter Infection -Unknown Musculoskeletal Complaint Exam - Back Pain Complaint/Exam Mechanism of Injury: Reports: No known trauma Symptoms Are: Still present Timing: Constant Initial Severity: Moderate Current Severity: Moderate Location: Reports: Discrete Character: Reports: Aching Aggravating: Reports: None Alleviating: Reports: None Associated Signs and Symptoms: Denies: Swelling, Redness, Bruising, Fever, Weakness, Numbness, Tingling, Abdominal pain, Flank pain, Bladder incontinence, Bowel incontinence, Weight loss, Pain with weight bearing Related History: Reports: Similar episode TAD Risk Factors: Reports: None AAA Risk Factors: Reports: None Cauda Equina Risk Factors: Reports: None Epidural Abcess Risk Factors: Reports: None Related Surgical History: Reports: None Focal Tenderness: No Paraspinal Muscle Tenderness: No Paraspinal Muscle Spasm: No Scoliosis: No Lordosis: No Kyphosis: No SLR Test: Right Negative, Left Negative Hip Motion Testing Pain: Right Negative, Left Negative Focal Weakness: Present: None Focal Sensory Loss: Present: None Gait: Present: Normal Differential Diagnoses: Renal Colic, Strain, Sprain Review of Systems - Review Of Systems Constitutional: Reports: No symptoms Eyes: Reports: No symptoms Ears, Nose, Mouth, Throat: Reports: No symptoms Respiratory: Reports: No symptoms Cardiac: Reports: No symptoms GI: Reports: No symptoms : Reports: No symptoms Musculoskeletal: Reports: Back pain Skin: Reports: No symptoms Neurological: Reports: No symptoms Endocrine: Reports: No symptoms Hematologic/Lymphatic: Reports: No symptoms All Other Systems: Reviewed and Negative Past Medical History - Past Medical History Previously Healthy: Yes Endocrine: Reports: Other (gout) Cardiovascular: Reports: Hypertension Respiratory: Reports: None Hematological: Reports: None Gastrointestinal: Reports: None Genitourinary: Reports: Kidney stones Neuro/Psych: Reports: None Musculoskeletal: Reports: Back Pain Cancer: Reports: None Other Pertinent Past Medical History: gout; chronic back pain - Surgical History General Surgical History: Reports: Appendectomy (exploratory lap), Orthopedic ( 3 knee surg) - Family History Family History: Reports: Unknown - Social History Smoking Status: Current every day smoker, Heavy tobacco smoker Hx Substance Use: Yes (pot) Alcohol Screening: None Physical Exam - Physical Exam Appearance: Well-appearing, No pain distress, Well-nourished Eyes: KATHARINE, EOMI, Conjunctiva clear ENT: Ears normal, Nose normal, Oropharynx normal Respiratory: Airway patent, Breath sounds clear, Breath sounds equal, Respirations nonlabored Cardiovascular: RRR, Pulses normal, No rub, No murmur GI/: Soft, Nontender, No masses, Bowel sounds normal, No Organomegaly Musculoskeletal: Normal strength, ROM intact, No edema, No calf tenderness Skin: Warm, Dry, Normal color Neurological: Sensation intact, Motor intact, Reflexes intact, Cranial nerves intact, Alert, Oriented Psychiatric: Affect appropriate, Mood appropriate Interpretation - Radiology Interpretation Radiology Interpretation By: Radiologist Radiology Results: Positive (renal stone) Critical Care Note - Critical Care Note Total Time (mins): 0 Course - Course Hematology/Chemistry: 08/01/18 14:23 08/01/18 14:23 Orders, Labs, Meds: Lab Review 08/01/18 08/01/18 08/01/18 14:23 14:23 14:38 WBC 8.19 RBC 4.62 L Hgb 14.2 Hct 41.3 L MCV 89.4 MCH 30.7 MCHC 34.4 RDW Coeff of Chandni 12.2 Plt Count 296 Immature Gran % (Auto) 0.2 Neut % (Auto) 59.4 Lymph % (Auto) 26.6 [place] % (Auto) 9.2 Eos % (Auto) 3.7 Baso % (Auto) 0.9 Immature Gran # (Auto) 0.0 Neut # (Auto) 4.9 Lymph # (Auto) 2.2 [place] # (Auto) 0.8 Eos # (Auto) 0.3 Baso # (Auto) 0.1 Sodium 143.6 Potassium 3.76 Chloride 102.5 Carbon Dioxide 30.6 H Anion Gap 14.26 BUN 13.9 Creatinine 0.88 Estimated GFR (MDRD) 92.00 BUN/Creatinine Ratio 15.79 Glucose 102.5 Calcium 9.14 Total Bilirubin 0.30 AST 28.4 ALT 25.7 Alkaline Phosphatase 124.6 Total Protein 7.29 Albumin 4.07 Globulin 3.22 Albumin/Globulin Ratio 1.26 Urine Color Yellow Urine Clarity Clear Urine pH 6.5 Ur Specific [place] 1.025 Urine Protein 1+ Urine Glucose (UA) Negative Urine Ketones Negative Urine Blood Negative Urine Nitrite Negative Urine Bilirubin Negative Urine Urobilinogen 1.0 Ur Leukocyte Esterase Negative Urine Microscopic RBC 0-2 Ur Squamous Epith Cells Not present Amorphous Sediment Trace Orders Category Date Time Status CBC W/ AUTO DIFF Stat LAB 08/01/18 14:23 Completed COMPREHENSIVE METABOLIC PANEL Stat LAB 08/01/18 14:23 Completed URINALYSIS C & S IF INDICATED Stat LAB 08/01/18 14:38 Completed Ketorolac Tromethamine [Toradol] MEDS 08/01/18 14:17 Discontinued 60 mg IM ONCE STA Orphenadrine Citrate [Norflex] MEDS 08/01/18 14:17 Discontinued 60 mg IM ONCE STA CT ABDOMEN/PELVIS WO CONTRAST Stat RADS 08/01/18 14:16 Completed Medications Discontinued Medications Generic Name Dose Route Start Last Admin Trade Name Freq PRN Reason Stop Dose Admin Ketorolac Tromethamine 60 mg 08/01/18 14:17 08/01/18 14:45 Toradol IM 08/01/18 14:18 Not Given ONCE STA Orphenadrine Citrate 60 mg 08/01/18 14:17 08/01/18 14:43 Norflex IM 08/01/18 14:18 60 mg ONCE STA Administration Vital Signs: Temp Pulse Resp BP Pulse Ox 08/01/18 13:15 98.0 F 112 H 20 149/85 H 96 Departure - Departure Time of Disposition: 15:03 Disposition: HOME SELF-CARE Discharge Problem: Backache, Renal stone Instructions: Flank Pain (ED), Kidney Stones (ED), Acute Low Back Pain (ED) Condition: Good Pt referred to PMD for follow-up: Yes IPMP verified?: No Additional Instructions: Please call your Family Physician as soon as possible to schedule a follow-up appointment. Allergies/Adverse Reactions: Allergies codeine Adverse Reaction (Verified 08/01/18 13:19) Rash Home Medications: Ambulatory Orders 1 [No Reported Medications] 08/01/18
== END 2018-08-01 15:14 | disposition home or self-care (01) ==
LOC: ED 13:15
DX: N20.0 Calculus of kidney (principal); M54.9 Dorsalgia, unspecified; Z87.442 Personal history of urinary calculi; F17.210 Nicotine dependence, cigarettes, uncomplicated
CPT/HCPCS: 36415; 80053; 81001; 85025; 96372; 99283

== ENCOUNTER 2018-10-10 15:06 | Outpatient (CLI) ==
--- NOTE | 2018-10-10 15:31 | DI ---
EXAM: LEFT KNEE. HISTORY: Left knee pain FINDINGS: Left knee four view. There is tricompartment osteoarthritis which is moderate in the late ral compartment and severe anteriorly. The medial compartment is relatively preserved. 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 There is a small joint effusion. No fracture is identified IMPRESSION: 1. Significant arthropathy of the knee most apparent in the anterior compartment. Small joint effus ion.
== END 2018-10-10 15:07 | disposition home or self-care (01) ==
LOC: RAD 15:06
PROVIDERS: ATTEND Nurse Practitioner Family
DX: M25.562 Pain in left knee (principal)

== ENCOUNTER 2018-10-21 09:27 | Outpatient (CLI) ==
--- NOTE | 2018-10-21 15:26 | MRI ---
EXAM: MRI of the left knee without contrast COMPARISON: Left knee radiographs 10/10/2018. HISTORY: Left knee pain after the knee popped going up the ladder. Three previous arthroscopic surg eries involving the left knee. TECHNIQUE: Multiplanar noncontrast MR images of the left knee were acquired using a 1.5 Gretel magnet . FINDINGS: There is linear arthrofibrosis involving Hoffa's fat pad related to previous arthroscopic surgery. There is intrasubstance degeneration of the lateral meniscus without a discrete surfacing t ear. Overall diminished size of the medial meniscus with some blunting of the free edge at the poste rior horn/root which may be related to prior partial meniscectomy versus a degenerative type tear. T here is linear hyperintense signal throughout the posterior horn/root remnant extending through the b trell approaching the free edge and inferior articular surface which may represent fibrovascular scarri ng related to previous surgery though abnormal signal approaches fluid signal intensity with a 2 mm f ocus of fluid signal more peripherally at the posterior horn/root and question articular surface cont act inferiorly at that level, concerning for tear/re-tear with horizontal cleavage/oblique component of small parameniscal cyst. Extrusion of the body related to loss of hoop containment. Intact anterior and posterior cruciate ligament fibers are identified. There is scarring involving t he anterior cruciate ligament related to a chronic sprain. Sprain with scarring of the medial collat eral ligament. Lateral collateral ligament complex and posterolateral corner ligaments are intact. Mild patellar/quadriceps tendinosis. 0.4 cm lateral subluxation of the patella within the trochlear groove. There is subcutaneous edema anteriorly and laterally without a drainable fluid collection. Discontinuity of the lateral patellar retinaculum complex suggesting previous surgical release. Spra in with scarring of the medial patellar retinaculum. There are marginal osteophytes in all three compartments of the knee with extensive full-thickness ca rtilage defects along the lateral facet and median ridge of the patella as well as the opposing artic ular surface of the trochlear groove. Marked subchondral edema/cystic change/sclerosis throughout th e trochlear groove laterally with question of component subchondral osteonecrosis. No articular surf cassidy collapse at that level. 1.1 x 0.7 cm T2 hyperintense/T1 hypointense lesion within the medial fem oral condyle medially which may represent an intraosseous cyst/ganglion. Mild to moderate thinning i rregularity the cartilage medial compartment. Thinning with fissuring and fibrillation of the cartil age along the central/posterior articular surface of the lateral femoral condyle. No evidence of an acute fracture or osteomyelitis. There is a small joint effusion, nonspecific. A 1.5 x 0.9 cm filli ng defect posteriorly overlying the posterior cruciate ligament consistent with a large osteochondral body with additional smaller loose bodies throughout the joint. This includes a 1.0 x 0.8 cm loose body within the suprapatellar bursa and laterally. Slit-like popliteal cyst. Muscle atrophy. IMPRESSION: 1. Tricompartmental osteoarthrosis with most severe changes in the patellofemoral compartment as micky cribed. 2. Small joint effusion, nonspecific. Osteochondral bodies with the largest located posteriorly as described. Slit-like popliteal cyst. 3. Chronic sprain with scarring of the anterior cruciate ligament intact fibers identified. Sprain with scarring of the medial collateral ligament. 4. Discontinuity of the lateral patellar retinaculum suggesting previous lateral release. Minimal l ateral subluxation of the patella. Sprain with scarring of the medial patellar retinaculum. 5. Mildly diminished size of the medial meniscus of the posterior horn which may be related to prior partial meniscectomy versus a degenerative type tear. Abnormal signal involving the meniscal remnan t which may in part represent fibrovascular scarring related to previous surgery though with findings concerning for a tear/re-tear with small intrameniscal cyst. Correlate with physical examination an d consider MR arthrography for further assessment. Mild extrusion of the body related to loss of sami p containment.
== END 2018-10-21 09:28 | disposition home or self-care (01) ==
LOC: RAD 09:27
PROVIDERS: ATTEND Nurse Practitioner Family
DX: S89.92XA Unspecified injury of left lower leg, initial encounter (principal)